=== PATIENT | male | born 1965 ===

== ENCOUNTER 2023-01-02 08:51 | Day surgery (SDC) | payer OTHER ==
[~2023-01-02] VITALS: Ht 167.6 cm; Wt 79.4 kg
[~2023-01-02 08:51] MED LIST: LEVOTHY PO; LOPID PO; TIROSINT25 MCG PO
[2023-01-02] MEDS ORDERED: CEPHALEXIN500 MG PO (13:40)
[2023-01-02] MEDS ORDERED: CILOXAN5 ML OTIC (13:40)
== END 2023-01-02 16:50 | disposition home or self-care (01) ==
LOC: CIR.AMB 08:51
PROVIDERS: ATTEND Otolaryngology Otology & Neurotology
DX: H72.01 Central perforation of tympanic membrane, right ear (principal); H72.11 Attic perforation of tympanic membrane, right ear; H90.A11 Conductive hearing loss, unilateral, right ear with restricted hearing on the contralateral side; E03.9 Hypothyroidism, unspecified; E78.5 Hyperlipidemia, unspecified; Z20.822 Contact with and (suspected) exposure to COVID-19